=== PATIENT | male | born 1945 | race Caucasian/White ===

== ENCOUNTER 2017-01-07 06:38 | Day surgery (SDC) | payer OTHER ==
[2017-01-06 09:00] LABS: MANUAL DIFF NEEDED? NO
[2017-01-06 09:02] LABS: BASO% 0.5 % (0.0-0.8); EOS# 0.07 X1000 (0.0-0.7); EOS% 1.3 % (0.0-10.0); HEMOGLOBIN 14.8 g/dL (14.0-18.0); LYMPH# 2.16 X1000 (1.2-3.4); LYMPH% 39.5 % (20.5-51.1); MCH 32.1 PG (27-31); MCHC 33.6 g/dL (33-37); MCV 95.4 FL (81-99); MONO# 0.65 X1000 (0.11-0.59); MONO% 11.9 % (1.7-9.3); MPV 13.3 FL (7.4-10.4); NEUT% 46.8 % (42.2-75.2); PLT 157 X1000 (130-400); RBC 4.61 XMIL (4.7-6.1)
[2017-01-06 09:14] LABS: INR 1.01; PROTIME 10.6 Seconds (9.2-11.7); PTT 27.1 Seconds (22.0-36.0)
[2017-01-06 09:18] LABS: AGAP 10; ALBUMIN 3.9 g/dL (3.5-5.0); ALKALINE PHOSPHATASE 67 U/L (32-122); BUN 19 mg/dL (8-22); CALCIUM 8.8 mg/dL (8.8-10.2); CHLORIDE 104 mmol/L (98-107); COSMO 281; GOT 19 U/L (10-34); GPT 12 U/L (10-44); POTASSIUM 4.3 mmol/L (3.5-5.1); SODIUM 140 mmol/L (136-145); TCO2 26 mmol/L (25-35); TOTAL BILIRUBIN 0.78 mg/dL (0.20-1.00); TOTAL PROTEIN 6.7 g/dL (6.3-8.3)
[2017-01-07] MEDS ORDERED: NS 1,000 ML ONE (07:14)
[2017-01-07] MEDS ORDERED: HEPARIN 1000 UNITS/NS 1,000 ML ONE (08:24)
--- NOTE | 2017-01-07 08:29 | EKG Report ---
Test Performed on : 01/07/2017 07:12:09 AM Test Reason : per MD Order Blood Pressure : / mmHG Vent. Rate : 047 BPM Atrial Rate : 047 BPM P-R Int : 184 ms QRS Dur : 088 ms QT Int : 452 ms P-R-T Axes : 017 056 042 degrees QTc Int : 400 ms Sinus bradycardia. Otherwise normal ECG When compared with ECG of 17-DEC-2016 13:45, No significant change was found Confirmed by Jayy ARTIS, Syed Carrasco ([id number]) on 01/07/2017 5:24:36 PM
[2017-01-07] MEDS ORDERED: VERSED ONE (08:54)
[2017-01-07] MEDS ORDERED: DILAUDID ONE (08:54)
--- NOTE | 2017-01-07 10:19 | CARDIAC CATH REPORT ---
DATE: 01/07/2017 INDICATION FOR THE PROCEDURE: Patient with persistent angina that has not responded to 2 antianginal medications. In addition, moderate-sized reversible defect in the distal and mid anterior wall. PROCEDURES PERFORMED: 1. Left heart catheterization. 2. Selective coronary angiography. 3. Left ventriculogram. PROCEDURE IN DETAIL: Mr. Barahona was brought to the catheterization laboratory in fasting state. Informed consent was obtained. He was prepped in the usual fashion. He was anesthetized over the right radial artery after Syed's test was proved adequate. A 5-Cymraes sheath was placed via true Seldinger technique. A radial cocktail was administered and catheters were introduced in the ascending thoracic aorta. Hemodynamic measurements were made in the ascending thoracic aorta. Coronary angiography was performed in multiple views using JL 3.5 and JR4 diagnostic catheters. The right coronary was noted to have a vertical takeoff but was able to be visualized with the JR4. The left heart catheterization and left ventriculogram were performed using the JR4. At the conclusion of the procedure, all sheaths and catheters were removed. TR band was left inflated at 8 mL of air. Good capillary refill, good hemostasis. No apparent complications. Seventy mL of IV contrast. Five mL of blood loss. FINDINGS: 1. The left main has minor luminal irregularities in the distal vessel. 2. The left anterior descending in the proximal mid distal vessel has minimal luminal irregularities. There is a high first diagonal with an ostial 50% to 60% lesion. This is a relatively small vessel. There is a D2 that is an extremely small vessel that appears subtotally occluded and provides blood flow to a very small area of myocardium. There is a large D3 with mild proximal luminal irregularities. 3. The circumflex has minimal luminal irregularities in proximal vessel, mild luminal irregularities up to 20% to 30% on the mid vessel, and the distal vessel has minimal luminal irregularities. 4. The right coronary artery again has a vertical takeoff with minimal luminal irregularities in the proximal vessel. The mid vessel has an early 60% lesion followed by a roughly 40% to 50% lesion. Minimal luminal irregularities noted in the distal vessel. 5. Left ventriculogram is noted to have an EF of 60% with normal wall motion. 6. Aortic blood pressure is 119/60 with a mean of 85. 7. Left ventricular pressure is 103/4 with an LVEDP of 8. ASSESSMENT: Ms. Barahona is a 71-year-old male who continued to have chest discomfort despite dual antianginal therapy. He has a moderate-sized defect in his nuclear scan in the anterior wall. PLAN: On questioning the patient today, he has continued to have chest discomfort, but this seems to be more of a fluttering sensation. He has not had any exertional pain. He does not appear to have any flow-limiting lesions in the territory of the anterior wall to suggest an etiology of the defect. His inferior wall was unremarkable on myocardial perfusion imaging, and current size of the lesion appears to be 50% to 60% range. I will plan on stopping the Ranexa. We will consider antiarrhythmic therapy in the future based on potential recurrent episodes of atrial fibrillation. I will see him back in the office in 1 month.
[2017-01-07 13:21] VITALS: BP 119/69
== END 2017-01-07 12:45 | disposition home or self-care (01) ==
LOC: OPS 06:38
PROVIDERS: ATTEND Internal Medicine Cardiovascular Disease
DX: I48.91 Unspecified atrial fibrillation (principal); R07.89 Other chest pain; R00.2 Palpitations; K21.9 Gastro-esophageal reflux disease without esophagitis; Z82.49 Family history of ischemic heart disease and other diseases of the circulatory system; Z79.01 Long term (current) use of anticoagulants; Z79.899 Other long term (current) drug therapy
CPT/HCPCS: 80053; 85025; 85610; 85730; 93005; 93010; 93458; J1170; J1644; J2250; J7030; Q9967

== ENCOUNTER 2019-06-29 02:34 | Observation (INO) ==
[2019-06-29] MEDS ORDERED: ASPIRIN PO ONE (02:49)
[2019-06-29 03:03] LABS: BASO# 0.03 X1000 (0.0-0.2); BASO% 0.5 % (0.0-0.8); EOS# 0.11 X1000 (0.0-0.7); EOS% 1.7 % (0.0-10.0); HEMATOCRIT 40.6 % (42.0-52.0); HEMOGLOBIN 13.3 g/dL (14.0-18.0); LYMPH# 2.24 X1000 (1.2-3.4); LYMPH% 33.9 % (20.5-51.1); MCH 33.2 PG (27-31); MCHC 32.8 g/dL (33-37); MCV 101.2 FL (81-99); MONO# 0.62 X1000 (0.11-0.59); MONO% 9.4 % (1.7-9.3); MPV 12.8 FL (7.4-10.4); NEUT% 54.5 % (42.2-75.2); PLT 137 X1000 (130-400); RBC 4.01 XMIL (4.7-6.1)
[2019-06-29 03:09] LABS: INR 1.17; PROTIME 15.1 Seconds (11.0-16.0)
[2019-06-29 03:10] LABS: PTT 30.6 Seconds (22.3-41.8)
[2019-06-29 03:25] LABS: AGAP 12; ALB/GLOB RATIO 1.9; ALBUMIN 4.2 g/dL (3.5-5.0); ALKALINE PHOSPHATASE 72 U/L (32-122); BUN 22 mg/dL (8-22); CALCIUM 8.9 mg/dL (8.8-10.2); CHLORIDE 108 mmol/L (98-107); CK PROFILE 90 U/L (24-204); COSMO 292; CREATININE 0.9 mg/dL (0.7-1.2); ESTIMATED GFR > 60; GLUCOSE 97 mg/dL (70-104); GOT 25 U/L (10-34); GPT 18 U/L (10-44); POTASSIUM 4.4 mmol/L (3.5-5.1); SODIUM 145 mmol/L (136-145); TCO2 25 mmol/L (25-35); TOTAL BILIRUBIN 0.62 mg/dL (0.20-1.00); TOTAL PROTEIN 6.4 g/dL (6.3-8.3)
--- NOTE | 2019-06-29 03:32 | PROVIDER DOCUMENTATION ---
HPI-Chest Pain - General Chief Complaint: Chest Pain Stated Complaint: CHEST PAIN/HISTORY Time Seen by Provider: 06/29/19 03:27 Source: patient Allergies/Adverse Reactions: Patient Allergies Allergy/AdvReac Type Severity Reaction Status Date / Time No Known Allergies Allergy Verified 05/21/18 00:35 Home Medications: Home Medication List Medication Instructions Recorded Confirmed Last Taken Type Multivitamin with Minerals 1 each PO DAILY 01/06/17 05/25/18 05/25/18 History [Multiple Vitamin] [place]-3 Fatty Acids/Fish Oil [Fish 1 each PO DAILY 01/06/17 05/25/18 05/25/18 History Oil 1,000 mg Capsule] Psyllium Husk [Metamucil] 0.52 gm PO DAILY 01/06/17 05/25/18 05/25/18 History Amiodarone [Cordarone] 200 mg PO DAILY 11/30/17 05/25/18 05/25/18 History ROSUVAstatin [Crestor] 10 mg PO HS 01/06/18 05/25/18 05/24/18 History Nitroglycerin 0.4 mg SL PRN PRN 05/21/18 05/25/18 05/20/18 23:00 History Amoxicillin/Potassium Clav 1 ea PO BID #6 tab 06/02/18 Unknown Rx [Augmentin 875-125 Tablet] Clopidogrel [Plavix] 75 mg PO DAILY #30 tab 06/02/18 Unknown Rx Hydrocodone/Acetaminophen [[place] 1 each PO Q4H PRN PRN #20 tablet 06/02/18 Unknown Rx 5-325 Tablet] Pantoprazole Sodium [Protonix] 40 mg PO DAILY #30 tablet. 06/02/18 Unknown Rx - History of Present Illness-CP Nature of Presenting Problem: Patient is a 74 year old white male with history of CAD (S/P cardiac stent 11/2017 at [facility]), torticollis, and hyperlipidemia who presents with 2/10 right sided dull chest ache since 9pm. No relief with several SL nitroglycerin. Followed by Dr. Santos. Review of Systems - Adult - REVIEW OF SYSTEMS - ADULT Constitutional: denies: chills, fever Eyes: denies: blurred vision Ears, Nose, Mouth & Throat: denies: throat pain Cardiovascular: reports: see HPI, chest pain Respiratory: denies: cough, shortness of breath Gastrointestinal: denies: abdominal pain, constipation, diarrhea, nausea, vomiting Genitourinary: denies: dysuria Integumentary: reports: no symptoms reported Psychiatric: reports: no symptoms reported Hematologic/Lymphatic: reports: no symptoms reported Allergic/Immunologic: reports: no symptoms reported All Other Systems: Reviewed and Negative Past History - Adult - PAST MEDICAL HISTORY-ADULT Review of Records: reports: Old Records Reviewed, Nursing Assessment Review, Medications Reviewed, Social history reviewed & non-contributory. Major Childhood Illnesses: reports: denies history Cardiovascular: reports: denies history Respiratory: reports: sleep apnea Gastrointestinal: reports: denies history Genitourinary: reports: denies history Musculoskeletal: reports: chronic pain, other (Torticollis) Neurological: reports: denies history Psychiatric: reports: denies history Endocrine/Immune: reports: denies history Other Conditions: reports: denies history - PRIOR SURGERIES/PROCEDURES Surgical/Procedure History: reports: cardiac stent, back/neck - IMMUNIZATION STATUS Childhood Immunizations: See Nurse Assessment Flu Vaccine: See Nurse Assessment - FAMILY HISTORY Family History: reviewed, not pertinent - SOCIAL HISTORY Smoking: non-smoker Substance Use: denies Alcohol Use Frequency: never Living Situation: family Physical Exam-General - CONSTITUTIONAL General Appearance: alert, no apparent distress - EYES Eyes: other (clear) - HEAD, EARS, NOSE, MOUTH & THROAT HENMT: normocephalic/atraumatic, moist mucous membranes - NECK Neck: supple - RESPIRATORY Respiratory: lungs clear - CARDIOVASCULAR Cardiovascular: regular rate, rhythm - GASTROINTESTINAL (ABDOMEN) Abdominal Exam: non tender, soft - LYMPHATIC Lymphatic: no adenopathy - MUSCULOSKELETAL Back Exam: no CVA tenderness Extremity: non-tender Peripheral Pulses: radial (R): 2+, radial (L): 2+ - SKIN Integumentary: normal color, normal turgor - NEUROLOGIC Neurologic: grossly normal, no motor/sensory deficits - PSYCHIATRIC Psych/Mental Status: oriented x 3, anxious - HEART Score HEART Score: History: Slightly Suspicious HEART Score: ECG: Normal HEART Score: Age: > or = 65 Years HEART Score: Risk Factors for Atherosclerotic Disease: > or = 3 Risk Factors or History of Atherosclerotic Disease HEART Score: Troponin: < or = Normal Limit Total HEART Score:: 4 Progress - PLAN OF CARE/RESULTS Progress/Plan/Lab Results: Vital Signs - 8 hr 06/29/19 02:35 06/29/19 04:01 Temperature 97.4 F L Pulse Rate 46 L 43 L Respiratory Rate 17 17 Blood Pressure 162/68 133/72 O2 Sat by Pulse Oximetry 98 97 Laboratory Results - last 24 hr 06/29/19 06/29/19 06/29/19 02:52 02:52 02:52 WBC 6.60 RBC 4.01 L Hgb 13.3 L Hct 40.6 L MCV 101.2 H MCH 33.2 H MCHC 32.8 L RDW Std Deviation 14.0 Plt Count 137 MPV 12.8 H Immature Gran % (Auto) 0.0 Neut % (Auto) 54.5 Lymph % (Auto) 33.9 [place] % (Auto) 9.4 H Eos % (Auto) 1.7 Baso % (Auto) 0.5 Immature Gran # (Auto) 0.00 Neut # (Auto) 3.60 Lymph # (Auto) 2.24 [place] # (Auto) 0.62 H Eos # (Auto) 0.11 Baso # (Auto) 0.03 PT INR PTT (Actin FS) Sodium 145 Potassium 4.4 Chloride 108 H Carbon Dioxide 25 Anion Gap 12 BUN 22 Creatinine 0.9 Estimated GFR/1.73 m2 > 60 BUN/Creatinine Ratio 24 Glucose 97 Calculated Osmolality 292 Calcium 8.9 Total Bilirubin 0.62 AST 25 ALT 18 Alkaline Phosphatase 72 Creatine Kinase 90 Troponin T Oyx-L-Caikcwtdxiv Pept 176 Total Protein 6.4 Albumin 4.2 Globulin 2.2 Albumin/Globulin Ratio 1.9 06/29/19 06/29/19 02:52 02:52 WBC RBC Hgb Hct MCV MCH MCHC RDW Std Deviation Plt Count MPV Immature Gran % (Auto) Neut % (Auto) Lymph % (Auto) [place] % (Auto) Eos % (Auto) Baso % (Auto) Immature Gran # (Auto) Neut # (Auto) Lymph # (Auto) [place] # (Auto) Eos # (Auto) Baso # (Auto) PT 15.1 INR 1.17 PTT (Actin FS) 30.6 Sodium Potassium Chloride Carbon Dioxide Anion Gap BUN Creatinine Estimated GFR/1.73 m2 BUN/Creatinine Ratio Glucose Calculated Osmolality Calcium Total Bilirubin AST ALT Alkaline Phosphatase Creatine Kinase Troponin T < 0.010 Lcf-F-Hxytxkdihpo Pept Total Protein Albumin Globulin Albumin/Globulin Ratio Orders Category Date Time Status Cardiac Monitoring DIRECTED Care 06/29/19 02:49 Active Oxygen Therapy- ED Nursing DIRECTED Care 06/29/19 02:49 Active Saline Loc NOW Care 06/29/19 02:49 Active CHEST-2 VIEWS [RAD] Stat Exams 06/29/19 02:49 Taken CBC WITH ELECTRONIC DIFF [HEME] Stat Lab 06/29/19 02:52 Completed CK PROFILE [SP CHEM] Stat Lab 06/29/19 02:52 Completed COMPREHENSIVE METABOLIC PANEL [CHEM] Stat Lab 06/29/19 02:52 Completed PRO B-NATRIURETIC PEPTIDE Stat Lab 06/29/19 02:52 Completed PROTIME WITH INR [COAG] Stat Lab 06/29/19 02:52 Completed PTT [COAG] Stat Lab 06/29/19 02:52 Completed TROPONIN T Stat Lab 06/29/19 02:52 Completed Aspirin Med 06/29/19 02:49 Discontinued 325 mg PO NOW ONE Morphine Med 06/29/19 05:01 Once 2 mg IV NOW ONE Nitroglycerin Med 06/29/19 03:46 Discontinued 0.5 inch TOP NOW ONE CP/SOB/Palp >45 yrs of Age Stat Oth 06/29/19 02:49 Ordered EKG [EKG] Stat Ther 06/29/19 02:49 Ordered Result Diagrams: 06/29/19 02:52 06/29/19 02:52 - CONSULTS/PCP/HOSPITALIST Notification #1 *Consult/PCP/Hospitalist*: Dr. Sal, hospitalist Time Discussed: 05:00 Consult Disposition: Admit Departure - Departure Date of Disposition Decision: 06/29/19 Time of Disposition Decision: 05:03 DIAGNOSIS: Chest pain Qualifiers: Chest pain type: unspecified Qualified Code(s): R07.9 - Chest pain, unspecified CAD (coronary artery disease) Qualifiers: Coronary Disease-Associated Artery/Lesion type: unspecified vessel or lesion type [place] vs. transplanted heart: [place] heart Associated angina: with unspecified angina Qualified Code(s): I25.119 - Atherosclerotic heart disease of [place] coronary artery with unspecified angina pectoris Disposition: ADMITTED INPATIENT 09 Certified Medical Emergency: Emergent Condition: Stable Referrals and Follow-Ups: Guicho Santos MD [Primary Care Provider] - - Critical Care Note This patient required my direct & personal management of CC.: No Attestation - Physician/ PAVAN Attestation Patient care was provided by Advanced Practice Provider:: No The physician spent face to face time with patient:: Yes Advanced Practice Provider documentation review:: Supervising physician onsite and consulted in the evaluation and care of this patient. The physician did have a face to face encounter with the patient.
[2019-06-29] MEDS ORDERED: NITROGLYCERIN TOP ONE (03:46)
[2019-06-29] MEDS ORDERED: MORPHINE IV ONE (05:01)
--- NOTE | 2019-06-29 05:08 | EKG Report ---
Test Performed on : 06/29/2019 02:40:29 AM Test Reason : cp Blood Pressure : / mmHG Vent. Rate : 046 BPM Atrial Rate : 046 BPM P-R Int : 194 ms QRS Dur : 084 ms QT Int : 516 ms P-R-T Axes : 090 056 037 degrees QTc Int : 451 ms Sinus bradycardia. Otherwise normal ECG When compared with ECG of 25-MAY-2018 17:41, No significant change was found Unconfirmed Result
[2019-06-29] MEDS ORDERED: MORPHINE IV PRN (05:54)
[2019-06-29] MEDS ORDERED: TYLENOL PO PRN (05:54)
--- NOTE | 2019-06-29 07:21 | Diag Imaging Result Doc PS360 ---
EXAM: CHEST-2 VIEWS 06/29/2019 HISTORY: chest pain TECHNIQUE: PA and lateral chest COMMENT: There is some apical pleural thickening particularly on the right. There is no evidence of acute cardiac or pulmonary disease and compared to 06/05/2019 there has been no significant change. IMPRESSION: No acute disease. Electronically signed by Warren Park 06/29/2019 7:18 AM
--- NOTE | 2019-06-29 08:26 | HISTORY AND PHYSICAL ---
CHIEF COMPLAINT: Chest pain. HISTORY OF PRESENT ILLNESS: This patient has a known history of coronary artery disease and had a cardiac stent placed in November of 2017. He has other cardiac issues as well. He stated that on the evening before admission, around 6 o'clock or so, he began to have a dull, right-sided chest aching sensation without diaphoresis or shortness of breath. He rated the pain at 2/10. He went on to gnosticist as scheduled and came back home and noticed that he was still having a little bit of an ache. He went to bed around 10 or so. He got up to go to the restroom at around 12:30 a.m. and noticed that the pain was still there. He laid down but was unable go back to sleep and finally decided to come to the emergency room around 2 a.m. Through his was emergency room visit, no significant abnormalities were detected but he continued to have this dull ache in the substernal to right sternal border area. He was admitted for observation and serial enzymes. PAST MEDICAL HISTORY: 1. History of mild bilateral carotid stenoses diagnosed in 2007. 2. 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 3. BPH. 4. History of esophageal ulcer in 1988. 5. Lipoprotein deficiency of HDL. 6. Chronic torticollis, treated with Botox injections. 7. Erectile dysfunction. 8. Paroxysmal atrial fibrillation diagnosed in 2016. 9. Coronary artery disease with stent placement 2017, Negative Jim/perfusion scan 05/23/19. PAST SURGICAL HISTORY: Lumbar laminectomy in 1988. FAMILY HISTORY: The patient's maternal grandfather and uncle had myocardial infarctions. His mother had an MN at age 75 and a brother had an MN at age 48. The patient's son had coronary artery disease and a stent at age 50. SOCIAL HISTORY: The patient lives in [place] with his . He is a lifelong nonsmoker and nonuser of alcohol. ALLERGIES: No known drug allergies. REVIEW OF SYSTEMS: The patient denies any recent weight loss or weight gain. He has had no fever or chills. His chronic torticollis has been operating at baseline, which causes him to twitches head quite frequently. He denies any cough, wheezing, or ongoing shortness of breath either exertionally or at rest. He has had no other chest pain prior to today's episode. He has noted no palpitations. He has had no symptoms consistent with orthopnea or PND. He denies any nausea or vomiting. He has had no abdominal pain. He has no genitourinary complaints. He has no musculoskeletal complaints. He denies headache or neurological symptoms. PHYSICAL EXAMINATION: GENERAL: He is a well-developed, well-nourished, white male in no acute distress. He is lying in bed quietly. He is alert, oriented, conversive, and appropriate. HEENT: Sclerae are anicteric. Oral mucosa is normal coloration and normal hydration level. NECK: No carotid bruits noted. No JVD. LUNGS: Clear to auscultation in all gonzalez. CARDIOVASCULAR: Regular, at a bradycardic rate of approximately 48 beats per minute at the time of my examination. He does not have chest wall tenderness over the site of his pain. ABDOMEN: Shows bowel sounds are present. He is nontender, nondistended. EXTREMITIES: He has trace edema in bilateral lower extremities, which is roughly symmetrical, although his right lower leg is larger than his left. NEUROLOGIC: The cranial nerves are intact. The patient moves freely in the bed and appears to have no focal neurological deficits. LABORATORY DATA: White cell count 6.6, hematocrit 40.6. INR 1.17. BUN 22, creatinine 0.9, glucose 97. CK was 90, troponin T was undetectable. ProBNP was normal. ASSESSMENT AND PLAN: 1. We are going to admit the patient as an outpatient with observation. We will get a serial set of enzymes. Assuming that these come back normal, the decision will have to be made whether it will be necessary to perform a repeat heart catheterization some 18 months after his stent was place and only a month after a negative perfusion study. I will leave the decision as to whether to consult cardiology to Dr. Santos, his primary color developer. 2. We will need to monitor the patient's blood pressure. It was initially up here in the emergency room but then calmed down quite well. 3. We noted bradycardia. The patient is on Eliquis, aspirin, and amiodarone for his atrial fibrillation, which appears to be maintaining a sinus bradycardia at the present time. He is asymptomatic from that problem. 4. Chronic torticollis. Aware. 5. Dyslipidemia. Aware. cc: MD Guicho Sanabria MD [facility] HOSPITALDelisa
[2019-06-29] MEDS ORDERED: CRESTOR PO SCH (09:00)
[2019-06-29] MEDS ORDERED: FISH OIL CONCENTRATE PO SCH (09:00)
[2019-06-29] MEDS ORDERED: METAMUCIL PO SCH (09:00)
[2019-06-29] MEDS ORDERED: ASPIRIN EC PO SCH (09:00)
[2019-06-29] MEDS ORDERED: THERA M PLUS PO SCH (09:00)
[2019-06-29] MEDS ORDERED: CORDARONE PO SCH (09:00)
[2019-06-29] MEDS ORDERED: ELIQUIS PO SCH (09:00)
--- NOTE | 2019-06-29 10:47 | EKG Report ---
Test Performed on : 06/29/2019 10:30:12 AM Test Reason : chest pain Blood Pressure : / mmHG Vent. Rate : 043 BPM Atrial Rate : 043 BPM P-R Int : 208 ms QRS Dur : 090 ms QT Int : 524 ms P-R-T Axes : 032 066 049 degrees QTc Int : 442 ms Marked sinus bradycardia. Abnormal ECG Confirmed by Mt ARTIS, Bakari Kyle ([id number]) on 06/29/2019 5:54:38 PM
[2019-06-29] MEDS ORDERED: ZOFRAN IV PRN (13:12)
--- NOTE | 2019-06-29 16:48 | CARDIOLOGY CONSULTATION ---
DATE: 06/29/2019 REQUESTING PHYSICIAN: Dr. Santos, [facility]. REASON FOR REQUEST: Chest pain. HISTORY: Mr. Barahona was in his usual state of health up until early this morning, about 2 o'clock. He woke up feeling pain in the center of the chest with slight radiation to the right side. This pain was reminiscent to prior angina pectoris. The patient got worried and sought medical evaluation. He came into the ER and they did an EKG that shows sinus bradycardia, rate is 46 beats per minute. No acute ischemic changes noted. Troponin levels have been checked twice, they are negative. ProBNP is normal. BUN, creatinine, sodium, and potassium are normal. We had requested a resting technetium perfusion study with sestamibi and this shows a defect in the inferior wall which looks different and more pronounced than what was noted on May 23. This may indicate the presence of coronary obstruction. PAST MEDICAL HISTORY: Positive for previous bout of angina pectoris in 2018. At that time, he was taken to [facility] where they did a stent to the right coronary artery. The final result was really not optimal. There was some residual stenosis proximal to the stent. The patient has a history of paroxysmal atrial fibrillation and has been taking Eliquis for a while. He has a history of hyperlipidemia. He has had acid reflux. He has had bilateral carotid disease. He has a history of melanoma. PAST SURGICAL HISTORY: Lumbar laminectomy. He has chronic torticollis. HOME MEDICATIONS: At this time include amiodarone 200 daily, amlodipine 2.5 daily, apixaban 5 mg twice a day, aspirin 81 daily, omega-3 fish oil 1000 daily, rosuvastatin 20 mg daily. ALLERGIES: He is not allergic to anything. SOCIAL HISTORY: . Retired. His is in the room with him. Lives at home. Not a smoker. Not a drinker. FAMILY HISTORY: Mother and brother had heart disease. REVIEW OF SYSTEMS: Noncontributory other than the fact that he has been able to walk a fair amount daily without having trouble until the onset of these symptoms. PHYSICAL EXAMINATION: Vital signs: Blood pressure is 150/72, pulse 51, temperature 97.6 degrees, respirations 18. General: The patient is awake, alert, in no distress. HEENT: Unremarkable. He has some essential tremor. Chest: Clear to auscultation and percussion. Heart: Sounds regular and rhythmic. No gallop or murmur. Abdomen: Soft, nontender. No masses. No hepatomegaly. Extremities: Show good pulses. No peripheral edema. Neurologic: Follows commands. Moves 4 extremities. IMPRESSIONS: 1. Patient presenting with chest pain, possibly angina pectoris. He has significant bradycardia. We cannot use beta blockers. He has been on anticoagulants. 2. History of severe coronary heart disease, previous stent to right coronary artery. Vessel is small and the result was really not perfect. There was some mild stenosis proximal to the stent. 3. History of paroxysmal atrial fibrillation, on anticoagulation. 4. History of carotid disease. RECOMMENDATION: At this time, we will refer the patient to [facility] for a follow-up heart catheterization. Because he took the Eliquis this morning, we are going to have to wait probably at least 24 hours before proceeding with the heart catheterization. Further intervention will depend on the findings of the heart catheterization. cc: MD Guicho Price MD MTDD
--- NOTE | 2019-06-29 19:37 | PROGRESS NOTE ---
DATE: 06/29/2019 SUBJECTIVE: The patient evaluated earlier in the morning and then later this evening. He still had some mild chest pains despite nitroglycerin paste. He has been evaluated by Dr. Tapia and patient had suboptimal stent placement to the RCA in the past. He has a history of PAF and is on Eliquis chronically and has been followed by Dr. Gigi Jones, his business machine operator. The patient had a resting portion of a stress test this morning that does show a defect that is more pronounced than the one done on May 23. OBJECTIVE: Vital signs: Afebrile. Pulse low in the 40s, blood pressure 140/76. Cardiovascular: Regular rhythm. Lungs: CTA. Extremities: No edema. Chest: Wall nontender. LABORATORY DATA: Cardiac enzymes and troponin levels negative x3. White count 6.6, hemoglobin 13.3, platelets 137,000. PT 15.1, PTT 30.6. Total CKs in the 70s and 80s. ProBNP 176. Chest x- ray is negative. ASSESSMENT: 1. Chest pain. 2. Coronary artery disease with prior history of suboptimal stent placement. 3. Paroxysmal atrial fibrillation. 4. Bradycardia. 5. Dyslipidemia. 6. Mild carotid stenosis bilaterally. 7. Remote history of melanoma in situ right cheek. 8. Benign prostatic hypertrophy. 9. Chronic torticollis, receiving Botox injections q.6 months. 10. Erectile dysfunction. 11. History of nephrolithiasis. PLAN: The patient is being transferred to [facility] for ongoing cardiac care and possible heart catheterization per Dr. Tapia due to abnormal rest portion of the stress test and ongoing symptoms. cc: Guicho Santos MD
[2019-06-29] MEDS ORDERED: LOVENOX 1 MG/KG SUBQ SCH (21:00)
[2019-06-29] MEDS ORDERED: LOVENOX SUBQ SCH (21:00)
--- NOTE | 2019-06-29 21:24 | Diag Imaging Result Document ---
PROCEDURE NAME: MYOCARDIAL PERFU SCAN, REST - 06/29/2019 STUDY: Resting sestamibi. SUMMARY: The patient was administered 31.2 mCi of technetium 99-m sestamibi, after which resting cardiac images were obtained. SPECT images were reconstructed in the short, horizontal, vertical long axis. Review of these images demonstrated mildly diminished activity in the inferior wall. Gated images demonstrate a calculated left ejection fraction of 73%. Wall motion is symmetrical on gated images. CONCLUSIONS: Resting sestamibi images demonstrate mildly reduced activity in the entire inferior wall with gated images showing normal left ventricular ejection fraction with symmetrical wall motion throughout. Clinical correlation recommended and consideration of stress sestamibi study. cc: MD Talia Penaloza PA
[2019-06-30 08:10] VITALS: BP 120/72
--- NOTE | 2019-06-30 08:14 | EKG Report ---
Test Performed on : 06/30/2019 06:08:33 AM Test Reason : chest pain Blood Pressure : / mmHG Vent. Rate : 046 BPM Atrial Rate : 046 BPM P-R Int : 186 ms QRS Dur : 092 ms QT Int : 514 ms P-R-T Axes : 009 081 066 degrees QTc Int : 449 ms Sinus bradycardia. Otherwise normal ECG Confirmed by [facility], Bakari Kyle ([id number]) on 06/30/2019 1:48:30 PM
== END 2019-06-30 09:49 | disposition short-term general hospital (02) ==
LOC: ED 02:34 → SUATTDRO 06:35 → 1N 06:35 → INTOOBSV 06:35
PROVIDERS: ADMIT Family Medicine; ATTEND Family Medicine